=== PATIENT | male | born 1995 | race Caucasian/White ===

== ENCOUNTER 2019-08-27 10:10 | Emergency (ER) | payer OTHER ==
[2019-08-27] MEDS ORDERED: ONDANSETRON 4 MG/2 ML VIAL IVP STA (10:41)
[2019-08-27] MEDS ORDERED: KETOROLAC 30 MG/ML 1 ML VIAL IVP STA (10:41)
--- NOTE | 2019-08-27 10:45 | ED ---
Abdominal Pain HPI - General Chief Complaint: Abdominal Pain Stated Complaint: back pain/abd pain/vomiting Time Seen by Provider: 08/27/19 10:25 Source: patient, RN notes reviewed Mode of arrival: ambulatory Limitations: no limitations - History of Present Illness Initial Comments: This is a 24-year-old male with a benign past medical history who states he had the onset 2 days ago right-sided flank pain with intermittent nausea vomiting some diarrhea. No fevers chills or sweats other than he does have some sweats when he vomits. No hematuria. No trauma. No other symptoms. He does state he has a family history of kidney stones. No other modifying factors at this time MD Complaint: flank pain - Related Data Home Medications Medication Instructions Recorded Confirmed No Known Home Medications 08/27/19 08/27/19 Allergies Allergy/AdvReac Type Severity Reaction Status Date / Time Iodinated Contrast Media Allergy Anaphylaxis Verified 08/27/19 11:44 Penicillins Allergy Rash/Hives Verified 08/27/19 11:44 Sulfa (Sulfonamide Allergy Rash/Hives Verified 08/27/19 11:44 Antibiotics) Review of Systems ROS Statement: Those systems with pertinent positive or pertinent negative responses have been documented in the HPI. ROS Other: All systems not noted in ROS Statement are negative. Past Medical History Past Medical History: No Reported History History of Any Multi-Drug Resistant Organisms: None Reported Additional Past Surgical History / Comment(s): wisdom teeth Past Psychological History: No Psychological Hx Reported Smoking Status: Current every day smoker Past Alcohol Use History: Occasional Past Drug Use History: Marijuana General Exam - General Exam Comments Initial Comments: This is a well-developed well-nourished awake alert oriented 3 male Limitations: no limitations General appearance: alert, in no apparent distress Head exam: Present: atraumatic, normocephalic, normal inspection Eye exam: Present: normal appearance, PERRL, EOMI. Absent: scleral icterus, conjunctival injection, periorbital swelling ENT exam: Present: mucous membranes dry Neck exam: Present: normal inspection. Absent: tenderness, meningismus, lymphadenopathy Respiratory exam: Present: normal lung sounds bilaterally. Absent: respiratory distress, wheezes, rales, rhonchi, stridor Cardiovascular Exam: Present: regular rate, normal rhythm, normal heart sounds. Absent: systolic murmur, diastolic murmur, rubs, gallop, clicks GI/Abdominal exam: Present: soft, tenderness (Mild tenderness palpation over the right flank no guarding rebound no rashes), normal bowel sounds. Absent: distended, guarding, rebound, rigid Rectal exam: Present: deferred Extremities exam: Present: normal inspection, full ROM, normal capillary refill. Absent: tenderness, pedal edema, joint swelling, calf tenderness Back exam: Present: normal inspection, CVA tenderness (R) Neurological exam: Present: alert, oriented X3, CN II-XII intact Psychiatric exam: Present: normal affect, normal mood Skin exam: Present: warm, dry, intact, normal color. Absent: rash Course Vital Signs 08/27/19 08/27/19 08/27/19 10:26 10:28 11:28 Temperature 98.2 F Pulse Rate 75 76 Respiratory 18 20 20 Rate Blood Pressure 129/72 124/77 O2 Sat by Pulse 98 99 Oximetry 08/27/19 08/27/19 08/27/19 11:41 12:00 12:30 Temperature Pulse Rate 70 Respiratory 20 Rate Blood Pressure 124/77 119/70 O2 Sat by Pulse 100 98 97 Oximetry 08/27/19 13:00 Temperature Pulse Rate 70 Respiratory 20 Rate Blood Pressure 129/69 O2 Sat by Pulse 96 Oximetry - Reevaluation(s) Reevaluation #1: 08/27/19 12:30 Patient is feeling improved at this time the pain was about 2 or 3/10 severity on further questioning patient does admit that he fell down some steps about 4 days ago in this may be the etiology of the pain. UA is pending Medical Decision Making - Medical Decision Making Patient did get improvement after the medication was given additionally the patient's blood pressure did respond. - Lab Data Result diagrams: 08/27/19 11:10 08/27/19 11:10 Lab Results 08/27/19 08/27/19 Range/Units 11:10 11:10 WBC 7.4 (3.8-10.6) k/uL RBC 5.54 (4.30-5.90) m/uL Hgb 17.7 H (13.0-17.5) gm/dL Hct 52.0 (39.0-53.0) % MCV 93.9 (80.0-100.0) fL MCH 31.9 (25.0-35.0) pg MCHC 34.0 (31.0-37.0) g/dL RDW 12.0 (11.5-15.5) % Plt Count 299 (150-450) k/uL Neutrophils % 77 % Lymphocytes % 11 % Monocytes % 5 % Eosinophils % 6 % Basophils % 0 % Neutrophils # 5.7 (1.3-7.7) k/uL Lymphocytes # 0.8 L (1.0-4.8) k/uL Monocytes # 0.4 (0-1.0) k/uL Eosinophils # 0.4 (0-0.7) k/uL Basophils # 0.0 (0-0.2) k/uL Sodium 137 (137-145) mmol/L Potassium 4.0 (3.5-5.1) mmol/L Chloride 102 (98-107) mmol/L Carbon Dioxide 22 (22-30) mmol/L Anion Gap 13 mmol/L BUN 11 (9-20) mg/dL Creatinine 0.73 (0.66-1.25) mg/dL Est GFR (CKD-EPI)AfAm >90 (>60 ml/min/1.73 sqM) Est GFR (CKD-EPI)NonAf >90 (>60 ml/min/1.73 sqM) Glucose 105 H (74-99) mg/dL Calcium 9.9 (8.4-10.2) mg/dL Total Bilirubin 1.1 (0.2-1.3) mg/dL AST 20 (17-59) U/L ALT 16 (4-49) U/L Alkaline Phosphatase 63 (38-126) U/L Creatine Kinase 42 L (55-170) U/L Total Protein 7.9 (6.3-8.2) g/dL Albumin 5.2 H (3.5-5.0) g/dL Amylase 46 (30-110) U/L Lipase 12 L (23-300) U/L - Radiology Data Radiology results: report reviewed (I did review the imaging and report no evidence of progression of the patient's aortic pathology.), image reviewed Disposition Clinical Impression: Atypical chest pain, Chest wall pain, Hypertensive urgency Disposition: HOME SELF-CARE Condition: Good Instructions (If sedation given, give patient instructions): Chest Pain (ED), Costochondritis (ED), Hypertension (ED) Is patient prescribed a controlled substance at d/c from ED?: No Referrals: None,Stated [Primary Care Provider] - 1-2 days
[2019-08-27 11:27] LABS: Basophils % (A) 0 %; Eosinophils # (A) 0.4 k/uL (0-0.7); Eosinophils % (A) 6 %; HGB 17.7 gm/dL (13.0-17.5); Lymphocytes # (A) 0.8 k/uL (1.0-4.8); Lymphocytes % (A) 11 %; MCH 31.9 pg (25.0-35.0); MCV 93.9 fL (80.0-100.0); Mean Platelet Volume 7.2; Monocytes # (A) 0.4 k/uL (0-1.0); Monocytes % (A) 5 %; Neutrophils # (A) 5.7 k/uL (1.3-7.7); Neutrophils % (A) 77 %; Platelet Count 299 k/uL (150-450); RBC 5.54 m/uL (4.30-5.90); WBC 7.4 k/uL (3.8-10.6)
[2019-08-27 11:42] LABS: ALT 16 U/L (4-49); AST 20 U/L (17-59); African American GFR (CKD) >90 (>60 ml/min/1.73 sqM); Albumin 5.2 g/dL (3.5-5.0); Alkaline Phosphatase 63 U/L (38-126); Amylase 46 U/L (30-110); Anion Gap 13 mmol/L; Blood Urea Nitrogen 11 mg/dL (9-20); Calcium 9.9 mg/dL (8.4-10.2); Carbon Dioxide 22 mmol/L (22-30); Chloride 102 mmol/L (98-107); Creatine Kinase 42 U/L (55-170); Glucose 105 mg/dL (74-99); Non-African American GFR(CKD) >90 (>60 ml/min/1.73 sqM); Sodium 137 mmol/L (137-145); Total Bilirubin 1.1 mg/dL (0.2-1.3); Total Protein 7.9 g/dL (6.3-8.2)
--- NOTE | 2019-08-27 11:50 | CT ---
EXAMINATION TYPE: CT abdomen pelvis wo con DATE OF EXAM: 08/27/2019 COMPARISON: None HISTORY: Right sided flank and abdominal pain with urination changes CT DLP: 394.8 mGycm Examination of the solid and hollow viscera is limited given the lack of contrast. FINDINGS: LUNG BASES: No evidence for nodule. No evidence for infiltrate. LIVER/GB: The gallbladder is unremarkable. No space-occupying hepatic lesion. PANCREAS: No pancreatic mass identified. No inflammatory process seen. SPLEEN: No evidence for splenomegaly. No intrasplenic lesions seen. ADRENALS: No adrenal nodules identified. No evidence for thickening. KIDNEYS: No evidence for renal mass. No nephrolithiasis. No hydronephrosis. BOWEL: Appendix has a normal appearance. No evidence of bowel obstruction. No inflammatory process. Lymph nodes: No evidence for adenopathy greater than 1 cm. Abdominal aorta: Atheromatous changes seen. No evidence for aneurysm. Genital organs: No significant abnormality. Other: No significant abnormality. IMPRESSION: NO ACUTE INTRA-ABDOMINAL PROCESS TO ACCOUNT FOR THE PATIENT'S SYMPTOMS.
[2019-08-27] MEDS ORDERED: SODIUM CHLORIDE 0.9% 1,000 ML IV ONE (12:02)
[2019-08-27] MEDS ORDERED: ORPHENADRINE 30 MG/ML 2 ML VIAL IVP STA (12:30)
[2019-08-27 13:13] VITALS: BP 123/75; PULSE 79; RESP 16; TEMP 98.4
--- NOTE | 2019-08-27 13:25 | ED ---
Medical Decision Making - Medical Decision Making Formation regarding CAT scan of the chest any difference his of blood pressure were inadvertently placed in this chart. She did have initially presentation of right CVA and flank tenderness consistent with a kidney stone CAT scan was negative. It was later learned the patient did have a fall down some stairs about 4 days ago this is a likely etiology of the pain. After medication was given the patient did recover and had very minimal discomfort. He will be discharged I did discuss this with him and his significant other. - Lab Data Result diagrams: 08/27/19 11:10 08/27/19 11:10 Lab Results 08/27/19 08/27/19 Range/Units 11:10 11:10 WBC 7.4 (3.8-10.6) k/uL RBC 5.54 (4.30-5.90) m/uL Hgb 17.7 H (13.0-17.5) gm/dL Hct 52.0 (39.0-53.0) % MCV 93.9 (80.0-100.0) fL MCH 31.9 (25.0-35.0) pg MCHC 34.0 (31.0-37.0) g/dL RDW 12.0 (11.5-15.5) % Plt Count 299 (150-450) k/uL Neutrophils % 77 % Lymphocytes % 11 % Monocytes % 5 % Eosinophils % 6 % Basophils % 0 % Neutrophils # 5.7 (1.3-7.7) k/uL Lymphocytes # 0.8 L (1.0-4.8) k/uL Monocytes # 0.4 (0-1.0) k/uL Eosinophils # 0.4 (0-0.7) k/uL Basophils # 0.0 (0-0.2) k/uL Sodium 137 (137-145) mmol/L Potassium 4.0 (3.5-5.1) mmol/L Chloride 102 (98-107) mmol/L Carbon Dioxide 22 (22-30) mmol/L Anion Gap 13 mmol/L BUN 11 (9-20) mg/dL Creatinine 0.73 (0.66-1.25) mg/dL Est GFR (CKD-EPI)AfAm >90 (>60 ml/min/1.73 sqM) Est GFR (CKD-EPI)NonAf >90 (>60 ml/min/1.73 sqM) Glucose 105 H (74-99) mg/dL Calcium 9.9 (8.4-10.2) mg/dL Total Bilirubin 1.1 (0.2-1.3) mg/dL AST 20 (17-59) U/L ALT 16 (4-49) U/L Alkaline Phosphatase 63 (38-126) U/L Creatine Kinase 42 L (55-170) U/L Total Protein 7.9 (6.3-8.2) g/dL Albumin 5.2 H (3.5-5.0) g/dL Amylase 46 (30-110) U/L Lipase 12 L (23-300) U/L Disposition Clinical Impression: Chest wall pain, Right flank pain Disposition: HOME SELF-CARE Condition: Good Prescriptions: Cyclobenzaprine [Flexeril] 10 mg PO TID #14 tab Ibuprofen 800 mg PO Q6HR PRN #20 tablet PRN Reason: Pain Is patient prescribed a controlled substance at d/c from ED?: No Referrals: None,Stated [Primary Care Provider] - 1-2 days
== END 2019-08-27 13:27 | disposition home or self-care (01) ==
LOC: EC 10:10
DX: I16.0 Hypertensive urgency (principal); R07.89 Other chest pain; R10.9 Unspecified abdominal pain; F17.200 Nicotine dependence, unspecified, uncomplicated; Z88.0 Allergy status to penicillin; Z88.2 Allergy status to sulfonamides; Z91.041 Radiographic dye allergy status
CPT/HCPCS: 36415; 80053; 82150; 82550; 83690; 85025; 74176; 99284; 96374; 96375 ×2; 96361; J2360; J2405; J1885

== ENCOUNTER 2019-09-26 18:05 | Emergency (ER) | payer OTHER ==
[2019-09-26 18:16] VITALS: RESP 18; TEMP 97.4
[2019-09-26] MEDS ORDERED: MORPHINE SULFATE 4 MG/ML SYRINGE IM STA (18:40)
[2019-09-26] MEDS ORDERED: ACET/COD 300 MG/30 MG STARTER PACK 6 TAB BTL PO STA (18:56)
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
[2019-09-26 19:18] VITALS: BP 104/68; PULSE 79
== END 2019-09-26 19:45 | disposition home or self-care (01) ==
LOC: EC 18:05
DX: S42.021A Displaced fracture of shaft of right clavicle, initial encounter for closed fracture (principal); F17.200 Nicotine dependence, unspecified, uncomplicated; Z91.041 Radiographic dye allergy status; Z88.0 Allergy status to penicillin; Z88.2 Allergy status to sulfonamides; V86.56XA Driver of dirt bike or motor/cross bike injured in nontraffic accident, initial encounter; Y92.488 Other paved roadways as the place of occurrence of the external cause; Y93.89 Activity, other specified
CPT/HCPCS: 73030; 71045; 99284; L1830